=== PATIENT | male | born 1955 | race Caucasian/White ===

== ENCOUNTER 2017-01-09 13:31 | Emergency (ER) | payer MEDICARE | END 2017-01-09 14:29 | disposition E | LOC: ER 13:31 | DX: I46.9 Cardiac arrest, cause unspecified (principal); I51.9 Heart disease, unspecified; I10 Essential (primary) hypertension; E11.9 Type 2 diabetes mellitus without complications; F10.20 Alcohol dependence, uncomplicated; F17.210 Nicotine dependence, cigarettes, uncomplicated | CPT/HCPCS: 36415; 80053; 82140; 82550; 82553; 83605; 83880; 85025; 85610; 85730; 92950; 96365; 96375; 99070; 99285; 99285-25; G0480 ==